=== PATIENT | female | born 1975 | race Caucasian/White ===

== ENCOUNTER 2017-02-03 19:12 | Emergency (ER) | payer OTHER ==
[~2017-02-03] VITALS: Ht 162.6 cm; Wt 83.1 kg
[2017-02-03] MEDS ORDERED: HYDROCHLOROTHIA25 MG PO (20:25)
[2017-02-03] MEDS ORDERED: SERTRALINE HCL100 MG PO (20:25)
[2017-02-03] MEDS ORDERED: BUSPAR5 MG PO (20:25)
[2017-02-03] MEDS ORDERED: XANAX0.25 MG PO (20:26)
[2017-02-03] MEDS ORDERED: FENOFIBRATE54 M1 PO (20:26)
[2017-02-03 20:40] LABS: HEMATOCRIT 40.6 % (36.0-46.0); MCH 30.5 PG (29.0-34.0); MCHC 34.5 G/DL (30.0-36.0); MCV 88.5 FL (83-99); MEAN PLAT.VOLUME 10.3 uM^3 (9.5-12.4); PLATELET COUNT 282 K/uL (156-360); RBC DIS.WIDTH-CV 13.2 % (11.8-14.6); RBC DIS.WIDTH-SD 43.1 % (39-53); RED BLOOD COUNT 4.59 M/uL (3.80-5.20); WHITE BLOOD COUNT 8.2 K/uL (4.1-10.2)
[2017-02-03 20:51] LABS: CHLORIDE 106 mEq/L (99-109); POTASSIUM 3.5 mEq/L (3.7-5.4); SODIUM 140 mEq/L (136-147)
[2017-02-03 20:53] LABS: GLUCOSE 135 mg/dL (70-99)
[2017-02-03 20:55] LABS: ANION GAP 9 MEQ/L (2-14)
[2017-02-03 20:57] LABS: GFR ESTIMATE (CALCULATED) > 59 mL/min/
[2017-02-03 20:58] LABS: UREA NITROGEN (BUN) 18 mg/dL (9-23)
[2017-02-03] MEDS ORDERED: NAPROSYN500 MG PO (21:37)
[2017-02-03] MEDS ORDERED: ULTRAM50 MG PO (21:37)
[2017-02-03 21:48] VITALS: BP 145/85
== END 2017-02-03 22:20 | disposition home or self-care (01) ==
LOC: EXP 19:12 → EME 19:12 → EXP 22:20
PROVIDERS: Physician Assistant
DX: M77.9 Enthesopathy, unspecified (principal); I10 Essential (primary) hypertension; E78.5 Hyperlipidemia, unspecified
CPT/HCPCS: 73090; 80048; 85027; 99281; 99283; J1885